=== PATIENT | male | born 1950 | race Two or more races ===

== ENCOUNTER 2016-07-13 11:56 | Emergency (ER) | payer MEDICARE, OTHER ==
--- NOTE | 2016-07-13 14:05 | ER Document Report ---
ED General - General Chief Complaint: Cough Stated Complaint: CONGESTION/WHEEZING Mode of Arrival: Ambulatory Information source: Patient TRAVEL OUTSIDE OF THE [place] IN LAST 30 DAYS: No - HPI Onset: Last week Onset/Duration: Gradual, Intermittent Quality of pain: No pain Pain Level: Denies Associated symptoms: None Exacerbated by: Coughing - Related Data Allergies/Adverse Reactions: allopurinol [Allopurinol] Allergy (Verified 07/13/16 11:59) Past Medical History - General Information source: Patient - Social History Smoking Status: Never Smoker Cigarette use (# per day): No Chew tobacco use (# tins/day): No Frequency of alcohol use: None Drug Abuse: None Family History: Reviewed & Not Pertinent Patient has suicidal ideation: No Patient has homicidal ideation: No - Past Medical History Cardiac Medical History: Reports: Hx Hypercholesterolemia, Hx Hypertension - previously Endocrine Medical History: Reports: Hx Diabetes Mellitus Type 2 Malignancy Medical History: Reports Hx Renal (Kidney) Cancer Musculoskeltal Medical History: Reports Hx Arthritis - osteo Past Surgical History: Reports: Hx Kidney (Renal Surgery) - kidney removed - Immunizations Hx Diphtheria, Pertussis, Tetanus Vaccination: No Review of Systems - Review of Systems Constitutional: No symptoms reported EENT: No symptoms reported Cardiovascular: No symptoms reported. denies: Chest pain, Palpitations, Heart racing, Dyspnea, Syncope, Dizziness, Lightheaded Respiratory: No symptoms reported, Cough. denies: Hurts to breathe, Hemoptysis , Short of breath Gastrointestinal: No symptoms reported Genitourinary: No symptoms reported Male Genitourinary: No symptoms reported Musculoskeletal: No symptoms reported Skin: No symptoms reported Hematologic/Lymphatic: No symptoms reported Neurological/Psychological: No symptoms reported Physical Exam - Vital signs Vitals: Pulse Resp BP Pulse Ox 80 18 127/82 H 97 07/13/16 12:02 07/13/16 12:02 07/13/16 12:02 07/13/16 12:02 Interpretation: Normal - General General appearance: Appears well, Alert - HEENT Head: Normocephalic, Atraumatic Eyes: Normal Pupils: PERRL - Respiratory Respiratory status: No respiratory distress Chest status: Nontender Breath sounds: Normal Chest palpation: Normal - Cardiovascular Rhythm: Regular Heart sounds: Normal auscultation Murmur: No - Abdominal Inspection: Normal Distension: No distension Bowel sounds: Normal Tenderness: Nontender Organomegaly: No organomegaly - Back Back: Normal, Nontender - Extremities General upper extremity: Normal inspection, Nontender, Normal color, Normal ROM , Normal temperature General lower extremity: Normal inspection, Nontender, Normal color, Normal ROM , Normal temperature, Normal weight bearing. No: Nito's sign - Neurological Neuro grossly intact: Yes Cognition: Normal Orientation: AAOx4 [place] Coma Scale Eye Opening: Spontaneous [place] Coma Scale Verbal: Oriented [place] Coma Scale Motor: Obeys Commands Anaya Coma Scale Total: 15 Speech: Normal Motor strength normal: LUE, RUE, LLE, RLE Sensory: Normal - Psychological Associated symptoms: Normal affect, Normal mood - Skin Skin Temperature: Warm Skin Moisture: Dry Skin Color: Normal Course - Vital Signs Vital signs: Temp Pulse Resp BP Pulse Ox 98.9 F 80 18 127/82 H 97 07/13/16 12:03 07/13/16 12:02 07/13/16 12:02 07/13/16 12:02 07/13/16 12:02 - Diagnostic Test Radiology reviewed: Reports reviewed Discharge - Discharge Clinical Impression: Bronchitis Disposition: HOME, SELF-CARE Additional Instructions: Bronchitis You have acute bronchitis. This disease is an infection or inflammation of the air passageways in your lungs. Symptoms usually include cough, low grade fever, shortness of breath, and wheezing. The cough usually persists for a couple of weeks. Most cases of bronchitis get better without antibiotics. We prescribe antibiotics when we believe bacteria are damaging your airways, or if there's high risk the bronchitis will worsen into pneumonia. Increase your fluid intake. A cool mist humidifier may make your lungs more comfortable. An expectorant (cough medicine that loosens phlegm) can help. If you smoke, STOP!!! Recovery from bronchitis can be somewhat slow, but you should see improvement within a day or two. Repeated episodes of bronchitis may result in lung damage -- for example, chronic bronchitis, recurrent pneumonias, or emphysema. Call the doctor if you develop increasing fever, shortness of breath, chest pain, bloody sputum, or otherwise worsen. If you have not improved at all after several days, contact the physician. Must follow-up with private doctor until complete resolution of symptoms. Return to emergency room approximately any change worsening condition. Prescriptions: Albuterol Sulfate [Proair HFA Inhalation Aerosol 8.5 gm MDI] 2 puff IH Q4H PRN # 1 mdi PRN Reason: Levofloxacin [Levaquin 750 mg Tablet] 750 mg PO DAILY #5 tablet
[2016-07-13 14:22] VITALS: BP 107/62
== END 2016-07-13 14:22 | disposition home or self-care (01) ==
LOC: ER 11:56
DX: J40 Bronchitis, not specified as acute or chronic (principal); I10 Essential (primary) hypertension; E11.9 Type 2 diabetes mellitus without complications; Z85.528 Personal history of other malignant neoplasm of kidney; Z88.8 Allergy status to other drugs, medicaments and biological substances; Z90.5 Acquired absence of kidney
CPT/HCPCS: 71020; 99283

== ENCOUNTER 2017-02-10 09:49 | Emergency (ER) | payer MEDICARE, OTHER ==
[2017-02-10 09:55] VITALS: BP 132/69
--- NOTE | 2017-02-10 10:27 | ER Document Report ---
ED Hand/Wrist Injury - General Chief Complaint: Hand Injury Stated Complaint: HAND INJURY Time Seen by Provider: 02/10/17 10:03 Mode of Arrival: Ambulatory Information source: Patient Notes: 56-year-old male presents to ED for injury to his left hand. He states he fell on Tuesday went to the [place] [facility] on Tuesday was sent to [facility] on Tuesday and was told this morning that he needed a splint to his left hand. We do not have copies of the x-ray or a written report to the x-ray. TRAVEL OUTSIDE OF THE [place] IN LAST 30 DAYS: No - HPI Injury to: Hand Onset: Other - Tuesday Where: Home Quality of pain: Sharp Severity: Moderate Pain Level: 2 Context: Fall - Related Data Allergies/Adverse Reactions: allopurinol [Allopurinol] Allergy (Verified 02/10/17 09:53) Home Medications: Current Home Medications Acetaminophen with Codeine [Acetaminophen-Cod #3 Tablet] 1 tab PO Q6H PRN [History] Gabapentin [Gabapentin] 900 mg PO QHS 02/10/17 [History] Pioglitazone HCl [Pioglitazone HCl] 30 mg PO DAILY 02/10/17 [History] Rosuvastatin Calcium [Rosuvastatin Calcium] 40 mg PO QHS 02/10/17 [History] Past Medical History - General Information source: Patient - Social History Smoking Status: Never Smoker Cigarette use (# per day): No Chew tobacco use (# tins/day): No Smoking Education Provided: No Frequency of alcohol use: None Drug Abuse: None Occupation: none Lives with: Alone Family History: Reviewed & Not Pertinent Patient has suicidal ideation: No Patient has homicidal ideation: No - Past Medical History Cardiac Medical History: Reports: Hx Hypercholesterolemia, Hx Hypertension - previously Pulmonary Medical History: Reports: None EENT Medical History: Reports: None Neurological Medical History: Reports: None Endocrine Medical History: Reports: Hx Diabetes Mellitus Type 2 Renal/ Medical History: Reports: Other - Nephrectomy Malignancy Medical History: Reports Hx Renal (Kidney) Cancer GI Medical History: Reports: None Musculoskeltal Medical History: Reports Hx Arthritis - osteo, Reports Hx Musculoskeletal Deformity, Reports Hx Musculoskeletal Trauma Skin Medical History: Reports None Psychiatric Medical History: Reports: None Traumatic Medical History: Reports: Hx Fractures Infectious Medical History: Reports: None Past Surgical History: Reports: Hx Genitourinary Surgery - urethroplasty, circumcision, Hx Kidney (Renal Surgery) - kidney removed, Hx Orthopedic Surgery - ulna nerve, carpal,right tibia, rotator cuff, Hx Tonsillectomy - Immunizations Immunizations up to date: No Hx Diphtheria, Pertussis, Tetanus Vaccination: No Review of Systems - Review of Systems Constitutional: No symptoms reported EENT: No symptoms reported Cardiovascular: No symptoms reported Respiratory: No symptoms reported Gastrointestinal: No symptoms reported Genitourinary: No symptoms reported Male Genitourinary: No symptoms reported Musculoskeletal: Other - pain left hand, patient states fractured Skin: No symptoms reported Hematologic/Lymphatic: No symptoms reported Neurological/Psychological: No symptoms reported -: Yes All other systems reviewed and negative Physical Exam - Vital signs Vitals: Temp Pulse Resp BP Pulse Ox 97.6 F 68 18 132/69 H 94 02/10/17 09:53 02/10/17 09:53 02/10/17 09:53 02/10/17 09:53 02/10/17 09:53 Interpretation: Normal - General General appearance: Appears well, Alert - HEENT Head: Normocephalic, Atraumatic Eyes: Normal Pupils: PERRL - Respiratory Respiratory status: No respiratory distress Chest status: Nontender Breath sounds: Normal Chest palpation: Normal - Cardiovascular Rhythm: Regular Heart sounds: Normal auscultation Murmur: No - Abdominal Inspection: Normal Distension: No distension Bowel sounds: Normal Tenderness: Nontender Organomegaly: No organomegaly - Back Back: Normal, Nontender - Extremities General upper extremity: Normal inspection, Normal color, Normal temperature General lower extremity: Normal inspection, Nontender, Normal color, Normal ROM , Normal temperature, Normal weight bearing. No: Nito's sign - Neurological Neuro grossly intact: Yes Cognition: Normal Orientation: AAOx4 [place] Coma Scale Eye Opening: Spontaneous Anaya Coma Scale Verbal: Oriented Anaya Coma Scale Motor: Obeys Commands Anaya Coma Scale Total: 15 Speech: Normal Motor strength normal: LUE, RUE, LLE, RLE Sensory: Normal - Psychological Associated symptoms: Normal affect, Normal mood - Skin Skin Temperature: Warm Skin Moisture: Dry Skin Color: Normal Course - Vital Signs Vital signs: Temp Pulse Resp BP Pulse Ox 97.6 F 68 18 132/69 H 94 02/10/17 09:53 02/10/17 09:53 02/10/17 09:53 02/10/17 09:53 02/10/17 09:53 - Diagnostic Test Radiology reviewed: Image reviewed, Reports reviewed Procedures - Immobilization Left Hand Immobilizer type: Other Performed by: PCT Post-Proc Neuro Vasc Exam: Normal Alignment checked and good: Yes Discharge - Discharge Clinical Impression: 5th metacarpal base fracture left Condition: Stable Disposition: HOME, SELF-CARE Additional Instructions: Fractured Fifth Metacarpal (Boxer's) You have a fracture of the fifth metacarpal bone in the hand, often called a Boxer's Fracture. The fracture is usually caused by striking the knuckle against a hard surface -- such as hitting a wall with the fist. This fracture heals well. Some degree of angle in the fracture is perfectly acceptable, resulting in only a slightly rounder knuckle. Your physician has determined whether your fracture could benefit from "setting", and has outlined a treatment plan for you. The usual treatment is splinting for four to six weeks -- a cast is not usually necessary. At first, the injury should be elevated and ice packed. Contact the doctor at once if swelling or pain becomes severe, or if numbness develops. Splint Precautions A splint has been placed. This will protect the area while healing begins. Your problem does NOT normally require a cast. It MUST, however, be held still! Keep the splint on ALL THE TIME until instructed to remove it by the doctor. As you begin to use the area, be careful. You shouldn't do anything which causes discomfort -- you may disturb the injury even with the splint in place. After the initial period of rest and elevation, if splint does not prevent pain when you move, come back. You may require placement of a different splint , or a cast. If there is unexpected severe pain, or numbness, discoloration, or swelling beyond the splint, you should return at once. If you feel that the splint has broken or become loose, come back. Anti-Inflammatory Medication You have been recommended that she use an anti-inflammatory agent for your pain. This is an excellent, safe drug for pain control. In addition, it has potent antiinflammatory effects which are beneficial, especially in the treatment of injuries, arthritis, or tendonitis. It's best to take this medicine with food. Persons with ulcer disease or allergy to aspirin should notify their physician of this before taking this drug. Take the medication exactly as prescribed. Don't take additional doses unless instructed to do so by your doctor. If you develop wheezing, shortness of breath, hives, faintness, stomach pain, vomiting, or dark black stools, return for re-evaluation at once. Ice & Elevation Apply ice packs frequently against the painful area. Many different schedules are recommended, such as "20 minutes on, 20 minutes off" or "one hour ice, two hours rest." If you need to work, you may need to go longer between ice treatments. You should plan to have the area ice packed AT LEAST one- fourth of the time. The ice should be applied over the wrap, tape, or splint, or over a layer of cloth -- not directly against the skin. Some ice bags have a built-in cloth and can be put directly on the skin. Your injured part should be elevated as much as possible over the next 48 hours. Try to keep the injury above the level of the heart. Avoid use of the injured area. Elevation and rest will decrease the swelling. FOLLOW-UP CARE: If you have been referred to a physician for follow-up care, call the physician s office for an appointment as you were instructed or within the next two days. If you experience worsening or a significant change in your symptoms, notify the physician immediately or return to the Emergency Department at any time for re-evaluation. Forms: Elevated Blood Pressure Referrals: QASIM ANDERSEN MD [Primary Care Provider] - Follow up as needed
--- NOTE | 2017-02-10 10:48 | RADIOLOGY REPORT (SQ) ---
EXAM DESCRIPTION: HAND LEFT 3 VIEWS COMPLETED DATE/TIME: 02/10/2017 10:40 am REASON FOR STUDY: fall injury COMPARISON: None. EXAM PARAMETERS: NUMBER OF VIEWS: Three views. TECHNIQUE: AP, lateral and oblique radiographic images acquired of the left hand. LIMITATIONS: None. FINDINGS: MINERALIZATION: Osteopenia. BONES: There is deformity of the navicular suggesting prior injury. JOINTS: Degenerative joint changes seen in the 5th proximal interphalangeal joint, and some of the di stal interphalangeal joints, in the 2nd and 3rd metacarpophalangeal joints, and in the radiocarpaljoi nts. SOFT TISSUES: No soft tissue swelling. No foreign body. OTHER: No other significant finding. IMPRESSION: Degenerative joint disease. Findings as described. No acute abnormality is seen. TECHNICAL DOCUMENTATION: JOB ID: [id number] [employer]- All Rights Reserved
== END 2017-02-10 11:35 | disposition home or self-care (01) ==
LOC: ER 09:49
PROC: 2W3DX1Z Immobilization of Left Lower Arm using Splint (ICD-10-PCS; principal; 2017-02-10)
DX: S62.317A Displaced fracture of base of fifth metacarpal bone, left hand, initial encounter for closed fracture (principal); W19.XXXA Unspecified fall, initial encounter; Z79.899 Other long term (current) drug therapy
CPT/HCPCS: 99283